=== PATIENT | male | born 1990 | race Caucasian/White ===

== ENCOUNTER 2017-05-27 18:51 | Emergency (ER) | payer BC ==
[~2017-05-27] VITALS: Ht 182.9 cm; Wt 91.0 kg
[2017-05-27 19:36] VITALS: BP 120/94
[2017-05-27] MEDS ORDERED: TETANUS, DIPHTHERIA, PERTUSSIS VAC/PF 0.5ML (>7YR OLD) IM ONE (23:00)
== END 2017-05-28 02:58 | disposition home or self-care (01) ==
LOC: ER 23:55
PROC: 2W3QX1Z Immobilization of Right Lower Leg using Splint (ICD-10-PCS; principal; 2017-05-27)
DX: S93.401A Sprain of unspecified ligament of right ankle, initial encounter (principal); S93.601A Unspecified sprain of right foot, initial encounter; X58.XXXA Exposure to other specified factors, initial encounter; Y93.89 Activity, other specified; Y92.89 Other specified places as the place of occurrence of the external cause; R03.0 Elevated blood-pressure reading, without diagnosis of hypertension
CPT/HCPCS: 29515; 73610; 73630; 90471; 90715; 99284; Z7610

== ENCOUNTER 2023-03-31 03:07 | Emergency (ER) | payer SELFPAY ==
[~2023-03-31] VITALS: Ht 185.4 cm; Wt 100.0 kg
[2023-03-31 03:28] VITALS: BP 126/79
== END 2023-03-31 03:20 | disposition left against medical advice (07) ==
LOC: ER 03:07
DX: Z53.21 Procedure and treatment not carried out due to patient leaving prior to being seen by health care provider (principal)
CPT/HCPCS: 99281